=== PATIENT | female | born 1985 | race Caucasian/White ===

== ENCOUNTER → 2017-07-25 | Outpatient (REF) ==
[~2017-07-25] MED LIST: ALBUTEROL0.09 MG/A1 IH; DEPO-PROVER150 MG/M1 IM; LITHIUM 30300 MG/CAP PO; PAIN MED; TRAZODONE150 MG PO; [UNRECOGNIZED DRUG - OTHER]
== END ==
LOC: WSOH 15:00
DX: Z02.89 Encounter for other administrative examinations (principal)